=== PATIENT | male | born 1970 | race Caucasian/White ===

== ENCOUNTER 2018-08-22 20:59 | Emergency (ER) | payer SELFPAY ==
--- NOTE | 2018-08-22 21:29 | EKG REPORT ---
SEVERITY: SINUS RHYTHM BASELINE ARTIFACT.PROBABLY NORMAL EKG : Confirmed by: Wendy Viera MD 22-Aug-2018 21:28:28
[2018-08-22] MEDS ORDERED: ASPIRIN 81 MG TABLET, CHEWABLE PO ONE (22:08)
--- NOTE | 2018-08-22 22:31 | RADIOLOGY REPORT (SQ) ---
EXAM DESCRIPTION: XR CHEST 2 VIEWS COMPLETED DATE/TME: 08/22/2018 00:00 CLINICAL HISTORY: 48 years, Male, productive cough COMPARISON: None. NUMBER OF VIEWS: 2 TECHNIQUE: 2 views of the chest LIMITATIONS: None. FINDINGS: The heart size is normal. Lungs are clear. No pneumothorax IMPRESSION: No acute cardiopulmonary process copyright 2010 [employer]- All Rights Reserved
[2018-08-22 23:43] LABS: ABSOLUTE MONOCYTES (AUTO) 1.2 10^3/uL (0.1-1.4); ABSOLUTE NEUT (AUTO) 15.5 10^3/uL (1.7-8.2); BASOPHILS % (AUTO) 0.2 % (0-2); HEMATOCRIT 43.6 % (37.9-51.0); HEMOGLOBIN 14.7 g/dL (13.5-17.0); LYMPHOCYTES % (AUTO) 5.6 % (13-45); MEAN CORPUSCULAR HEMOGLOBIN 30.2 pg (27.0-33.4); MEAN CORPUSCULAR HGB CONC 33.7 g/dL (32.0-36.0); MEAN CORPUSCULAR VOLUME 90 fl (80-97); MONOCYTES % (AUTO) 6.5 % (3-13); PLATELET COUNT 212 10^3/uL (150-450); RED BLOOD COUNT 4.88 10^6/uL (4.35-5.55); RED CELL DISTRIBUTION WIDTH 13.3 % (11.5-14.0); SEGMENTED NEUTROPHILS % (AUTO) 87.7 % (42-78); TOTAL CELLS COUNTED % (AUTO) 100 %; WHITE BLOOD COUNT 17.7 10^3/uL (4.0-10.5)
[2018-08-22 23:52] LABS: ALANINE AMINOTRANSFERASE 40 U/L (21-72); ALBUMIN 4.4 g/dL (3.5-5.0); ALKALINE PHOSPHATASE 67 U/L (38-126); ANION GAP 10 (5-19); ASPARTATE AMINO TRANSFERASE 112 U/L (17-59); BILIRUBIN,DIRECT 0.2 mg/dL (0.0-0.4); BILIRUBIN,TOTAL 1.2 mg/dL (0.2-1.3); BLOOD UREA NITROGEN 18 mg/dL (7-20); CALCIUM 9.9 mg/dL (8.4-10.2); CARBON DIOXIDE 26 mmol/L (22-30); CHLORIDE 105 mmol/L (98-107); CREATINE KINASE 1018 U/L (55-170); GLUCOSE 152 mg/dL (75-110); POTASSIUM 4.7 mmol/L (3.6-5.0); SODIUM 140.8 mmol/L (137-145); TOTAL PROTEIN 7.1 g/dL (6.3-8.2)
[2018-08-23 00:04] LABS: CREATINE KINASE MB 86.1 ng/mL (<4.55)
[2018-08-23 00:06] LABS: TROPONIN I 4.82 ng/mL
[2018-08-23] MEDS ORDERED: KETOROLAC TROMETHAMINE INJ/PF 30 MG/1 ML SDV IV ONE (00:13)
[2018-08-23] MEDS ORDERED: NORMAL SALINE 1000 ML 1,000 ML IV ONE ×2 (00:14→02:57)
--- NOTE | 2018-08-23 01:14 | ER Document Report ---
Entered by ELIE RABAGO SCRIBE 08/23/18 0033 Acting as scribe for:FATOU TRUONG MD ED Cardiac - General Chief Complaint: Chest Pain Stated Complaint: CHEST PAIN Time Seen by Provider: 08/22/18 23:53 Notes: Patient is a 48-year-old male comes to the emergency department complaining of chest pain. Patient states that he has also been coughing up phlegm for a couple weeks now. Patient describes the pain as a "screwdriver hitting his chest" this started about 11 AM today. The pain has been constant since then. Patient states that laying down exacerbates the pain, but laying on his back makes it better. He has had some nausea and vomiting this evening about 8 PM. Patient denies having any difficulty breathing or shortness of breath. The spouse reports that on Tuesday, they were at a beach in [place] and at some point she was far from the shore on a raft and he swam out to get her. It was much further than he would normally ever try to swim. 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 His work does not involve the chest rotation type ac tivity involved in the swimming that he did on Tuesday. - Related Data Allergies/Adverse Reactions: acetaminophen [From Tylenol-Codeine #3] Allergy (Mild, Verified 08/22/18 21:02) codeine [From Tylenol-Codeine #3] Allergy (Mild, Verified 08/22/18 21:02) Past Medical History - General Information source: Patient - Social History Smoking Status: Current Every Day Smoker Cigarette use (# per day): Yes Chew tobacco use (# tins/day): No Frequency of alcohol use: Social Drug Abuse: None Family History: CAD Past Surgical History: Reports: Hx Orthopedic Surgery - Tendon repair from an incident with a chainsaw Review of Systems - Review of Systems Constitutional: No symptoms reported EENT: No symptoms reported Cardiovascular: See HPI, Chest pain Respiratory: No symptoms reported Gastrointestinal: See HPI, Nausea, Vomiting Genitourinary: No symptoms reported Male Genitourinary: No symptoms reported Musculoskeletal: No symptoms reported Skin: No symptoms reported Hematologic/Lymphatic: No symptoms reported Neurological/Psychological: No symptoms reported -: Yes All other systems reviewed and negative Physical Exam - Vital signs Vitals: Temp Pulse Resp BP Pulse Ox 98.0 F 51 L 16 112/80 100 08/22/18 21:09 08/22/18 21:09 08/22/18 21:09 08/22/18 21:09 08/22/18 21:09 - Notes Notes: Physical Exam: General: Alert, appears well. HEENT: Normocephalic. Atraumatic. PERRL. Extraocular movements intact. Oropharynx clear. Sounds nasally congested. Neck: Supple. Non-tender. Respiratory: No respiratory distress. Clear and equal breath sounds bilaterally. Cardiovascular: Regular rate and rhythm. Chest: Right chest tenderness to palpation. Sternum and xiphoid process are both extremely tender to palpation. Palpating the sternum reproduces and exacerbates the chief complaint. Abdominal: Normal Inspection. Non-tender. No distension. Normal Bowel Sounds. Back: Non-tender. Extremities: Moves all four extremities. Upper extremities: Normal inspection. Normal ROM. Lower extremities: Normal inspection. No edema. Normal ROM. Neurological: Normal cognition. AAOx4. Normal speech. Psychological: Normal affect. Normal Mood. Skin: Warm. Dry. Normal color. Course - Re-evaluation Re-evalutation: 08/23/18 02:22 On recent reexamination, patient states that his pain is gone after the Toradol. He is quite comfortable. Palpating the tender sternal area does elicit some discomfort, but again he states it is much better than earlier. His repeat EKG just an acute inferior wall CO, however he has developed Q's in the inferior leads that were also present on the first EKG. 08/23/18 03:15 I initially discussed the case with Dr. Hinojosa at [facility] and he agreed to accept the patient. He reviewed the EKGs, the history, the lab work, and felt that he had had a recent inferior wall CO, but was not a thrombolytic candidate. He a sks that he receive only aspirin and heparin and no Plavix. He was made arrangements for the patient to come to [place] and would take him to the [facility] in the morning. The objected to this and wanted the patient to go to either [facility] or [facility] as they are both closer to where she lives. I called [facility], and spoke with Dr. Handy and again reviewed the case with him and he agreed to accept the patient. They sent a helicopter to [place] the patient as soon as he was accepted. - Vital Signs Vital signs: Temp Pulse Resp BP Pulse Ox 98.1 F 50 L 16 114/68 100 08/22/18 21:59 08/22/18 21:59 08/22/18 21:59 08/22/18 21:59 08/22/18 23:41 - Laboratory Result Diagrams: 08/22/18 23:20 08/22/18 23:20 Laboratory results interpreted by me: 08/22/18 08/22/18 08/22/18 23:20 23:20 23:20 WBC 17.7 H Seg Neutrophils % 87.7 H Lymphocytes % 5.6 L Absolute Neutrophils 15.5 H Glucose 152 H AST 112 H Creatine Kinase 1018 H CK-MB (CK-2) 86.10 H 08/23/18 08/23/18 01:25 01:25 WBC Seg Neutrophils % Lymphocytes % Absolute Neutrophils Glucose AST Creatine Kinase 1500 H CK-MB (CK-2) 140.00 H - Diagnostic Test Radiology reviewed: Image reviewed, Reports reviewed - Chest x-ray does not show an acute cardiopulmonary process. - EKG Interpretation by Me EKG shows normal: Sinus rhythm, [place], Intervals, QRS Complexes, ST-T Waves Rate: Normal Rhythm: NSR Critical Care Note - Critical Care Note Total time excluding time spent on procedures (mins): 40 Discharge - Discharge Clinical Impression: Myocardial infarction acute Qualifiers: Myocardial infarction type: other Qualified Code(s): I21.A9 - Other myocardial infarction type Condition: Good Disposition: [facility] Scribe Attestation: 08/23/18 03:14 I personally performed the services described in the documentation, reviewed and edited the documentation which was dictated to the scribe in my presence, and it accurately records my words and actions. I personally performed the services described in the documentation, reviewed and edited the documentation which was dictated to the scribe in my presence, and it accurately records my words and actions.
[2018-08-23] MEDS ORDERED: CLOPIDOGREL BISULFATE 300 MG TABLET PO ONE (02:11)
[2018-08-23 02:12] LABS: TROPONIN I 10.9 ng/mL
[2018-08-23] MEDS ORDERED: HEPARIN SOD (PORCINE) 1,000 UNIT/ML 10 ML VIAL IV ONE (02:36)
[2018-08-23] MEDS ORDERED: HEPARIN SODIUM,PORCINE/D5W 25,000 UNIT/250 ML RTUINJ IV PRN (02:36)
[2018-08-23 02:54] LABS: INTERNATIONAL RATION (INR) 0.97; PROTHROMBIN TIME 12.9 SEC (11.4-15.4)
[2018-08-23 03:16] LABS: ABSOLUTE BASOPHILS # (AUTO) 0.1 10^3/uL (0.0-0.2); ABSOLUTE LYMPHOCYTES (AUTO) 1.8 10^3/uL (0.5-4.7); ABSOLUTE MONOCYTES (AUTO) 1.8 10^3/uL (0.1-1.4); ABSOLUTE NEUT (AUTO) 15.5 10^3/uL (1.7-8.2); BASOPHILS % (AUTO) 0.7 % (0-2); EOSINOPHILS % (AUTO) 0.1 % (0-6); HEMATOCRIT 43.3 % (37.9-51.0); HEMOGLOBIN 14.7 g/dL (13.5-17.0); LYMPHOCYTES % (AUTO) 9.4 % (13-45); MEAN CORPUSCULAR HEMOGLOBIN 30.3 pg (27.0-33.4); MEAN CORPUSCULAR HGB CONC 33.9 g/dL (32.0-36.0); MEAN CORPUSCULAR VOLUME 89 fl (80-97); MONOCYTES % (AUTO) 9.1 % (3-13); PLATELET COUNT 206 10^3/uL (150-450); RED BLOOD COUNT 4.85 10^6/uL (4.35-5.55); RED CELL DISTRIBUTION WIDTH 13.4 % (11.5-14.0); SEGMENTED NEUTROPHILS % (AUTO) 80.7 % (42-78); TOTAL CELLS COUNTED % (AUTO) 100 %; WHITE BLOOD COUNT 19.2 10^3/uL (4.0-10.5)
[2018-08-23 03:26] VITALS: BP 138/107
[2018-08-23 04:14] LABS: APPEARANCE,URINE TURBID; BILIRUBIN,URINE MODERATE (NEGATIVE); COLOR,URINE AMBER; GLUCOSE, URINE NEGATIVE (NEGATIVE); KETONES,URINE NEGATIVE (NEGATIVE); LEUKOCYTE ESTERASE,URINE NEGATIVE (NEGATIVE); NITRITE,URINE NEGATIVE (NEGATIVE); PROTEIN,URINE 30 mg/dL (NEGATIVE); URINE SPECIFIC GRAVITY 1.032; UROBILINOGEN,URINE NEGATIVE mg/dL (<2.0)
[2018-08-23] MEDS ORDERED: HEPARIN SOD (PORCINE) 1,000 UNIT/ML 10 ML VIAL IV PRN (05:38)
--- NOTE | 2018-08-23 10:38 | EKG REPORT ---
SEVERITY:- ABNORMAL ECG - SINUS ARRHYTHMIA, RATE 53-83 LEFT POSTERIOR FASCICULAR BLOCK INFERIOR INFARCT, ACUTE : Confirmed by: Wendy Viera MD 23-Aug-2018 10:37:52
== END 2018-08-23 03:33 | disposition short-term general hospital (02) ==
LOC: EDBD → ER 20:59
DX: I21.A9 Other myocardial infarction type (principal); R07.9 Chest pain, unspecified; R05 Cough; F17.200 Nicotine dependence, unspecified, uncomplicated
CPT/HCPCS: 93005; 99291; 96361; 96375; 96365; 36415; 82553; 82550; 85025; 85610; 85730; 80053; 81001; 84484; 71046; 93010; J1644 ×2; J1885; J7030